=== PATIENT | male | born 1970 | race Two or more races ===

== ENCOUNTER 2022-07-13 12:26 | Emergency (ER) | payer BC, OTHER ==
[~2022-07-13] VITALS: Ht 170.2 cm; Wt 59.0 kg
[2022-07-13 13:26] VITALS: BP 118/74
[2022-07-13] MEDS ORDERED: KETOROLAC TROMETH 60MG/2ML VIAL IM ONE (14:00)
[2022-07-13] MEDS ORDERED: TRAM-297 PO ×2 (14:20→14:21)
[2022-07-13] MEDS ORDERED: PRED20TA2 PO (14:20)
[2022-07-16] MEDS ORDERED: NAP500T PO (11:08)
[2022-07-16] MEDS ORDERED: CYCL-837 PO (11:08)
== END 2022-07-13 14:46 | disposition home or self-care (01) ==
LOC: EDBD 12:26 → ER 12:34
DX: G89.29 Other chronic pain (principal); M54.59 Other low back pain; M54.16 Radiculopathy, lumbar region
CPT/HCPCS: 96372; 99283; J1885